=== PATIENT | male | born 1960 | race Caucasian/White ===

== ENCOUNTER 2018-12-27 10:05 | Day surgery (SDC) | payer OTHER ==
[~2018-12-27] VITALS: Ht 172.7 cm; Wt 70.9 kg
[2018-12-27] MEDS ORDERED: TERI2.4P SQ (11:09)
[2018-12-27] MEDS ORDERED: GABA300C16 PO (11:09)
[2018-12-27 11:13] VITALS: Ht 172.7 cm; Wt 70.9 kg
[2018-12-27 11:39] VITALS: BP 120/67; PULSE 67; RESP 20
[2018-12-27] MEDS ORDERED: FENTAnyl 50 MCG/ML VIAL ONE (11:59)
[2018-12-27] MEDS ORDERED: MIDAZOLAM 1 MG/ML 2 ML INJ ONE ×2 (11:59→12:00)
[2018-12-27 12:20] VITALS: BP 101/66; PULSE 67; RESP 24
== END 2018-12-27 13:16 | disposition home or self-care (01) ==
LOC: GIL 10:05
PROVIDERS: ATTEND Internal Medicine Gastroenterology
DX: Z12.11 Encounter for screening for malignant neoplasm of colon (principal); K64.9 Unspecified hemorrhoids
CPT/HCPCS: 45378; J2250; J3010